=== PATIENT | male | born 2000 | race Caucasian/White ===

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

== ENCOUNTER 2019-06-17 21:41 | Emergency (ER) | payer OTHER ==
[~2019-06-17] VITALS: Ht 182.9 cm; Wt 81.6 kg
[2019-06-17 23:50] VITALS: BP 136/85
[2019-06-18] MEDS ORDERED: ACETAMINOPHEN/CODEINE#3 (300/30mg) TAB PO ONE (00:45)
[2019-06-18] MEDS ORDERED: IBUPROFEN 600 MG TAB PO ONE (00:45)
== END 2019-06-18 05:06 | disposition home or self-care (01) ==
LOC: ER 21:41
DX: S62.302A Unspecified fracture of third metacarpal bone, right hand, initial encounter for closed fracture (principal); X58.XXXA Exposure to other specified factors, initial encounter; Y93.89 Activity, other specified; Y99.8 Other external cause status; Y92.89 Other specified places as the place of occurrence of the external cause
CPT/HCPCS: 29125; 73130

== ENCOUNTER 2023-09-26 08:44 | Emergency (ER) | payer OTHER, MEDICAID ==
[~2023-09-26] VITALS: Ht 185.4 cm; Wt 95.4 kg
[2023-09-26 09:29] VITALS: BP 124/94; PULSE 84; RESP 18; TEMP 98.5; O2SAT 99
[2023-09-26] MEDS ORDERED: IBUPROFEN 800 MG TAB PO ONE (09:30)
== END 2023-09-26 09:37 ==
LOC: ER 08:44
DX: S01.112A Laceration without foreign body of left eyelid and periocular area, initial encounter (principal); W26.0XXA Contact with knife, initial encounter; Y93.89 Activity, other specified; Y92.89 Other specified places as the place of occurrence of the external cause; Y99.8 Other external cause status
CPT/HCPCS: 12013; 70450

== ENCOUNTER 2024-01-28 18:33 | Emergency (ER) | payer OTHER, MEDICAID ==
[~2024-01-28] VITALS: Ht 182.9 cm; Wt 92.0 kg
[2024-01-28 20:39] VITALS: BP 126/85; PULSE 77; RESP 12; TEMP 97.8; O2SAT 98
[2024-01-28] MEDS: KETOROLAC TROMETH 60MG/2ML VIAL IM ONE (21:20)
[2024-01-28] MEDS ORDERED: IBUP-1455 PO (22:11)
== END 2024-01-28 22:20 | disposition home or self-care (01) ==
LOC: ER 18:33
DX: M25.562 Pain in left knee (principal); V98.8XXA Other specified transport accidents, initial encounter; Y93.89 Activity, other specified; Y92.89 Other specified places as the place of occurrence of the external cause; Y99.8 Other external cause status
CPT/HCPCS: 29505; 73562; 96372; 99283; J1885

== ENCOUNTER 2024-12-26 00:48 | Emergency (ER) | payer OTHER, MEDICAID ==
[~2024-12-26] VITALS: Ht 188 cm; Wt 93.0 kg
[~2024-12-26 00:48] MED LIST: IBUP-1455 PO
[2024-12-26] MEDS: KETOROLAC TROMETH 60MG/2ML VIAL IM ONE (01:58)
[2024-12-26] MEDS: HYDROcodone-ACET 10/325MG TAB PO ONE (01:58)
[2024-12-26 02:02] VITALS: BP 126/73; PULSE 82; RESP 19; TEMP 98.4; O2SAT 95
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
[2024-12-26] MEDS ORDERED: ACET500T58 PO (02:47)
[2024-12-26] MEDS ORDERED: IBUP-1455 PO (02:47)
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
== END 2024-12-26 03:36 | disposition home or self-care (01) ==
LOC: ER 00:48
DX: S16.1XXA Strain of muscle, fascia and tendon at neck level, initial encounter (principal); S09.90XA Unspecified injury of head, initial encounter; Y04.2XXA Assault by strike against or bumped into by another person, initial encounter; Y93.89 Activity, other specified; Y92.89 Other specified places as the place of occurrence of the external cause; Y99.8 Other external cause status
CPT/HCPCS: 70450; 72125; 96372; 99285; J1885